=== PATIENT | male | born 1960 | race African-American/Black ===

== ENCOUNTER 2019-09-15 09:36 | Emergency (ER) | payer MEDICAID ==
[~2019-09-15] VITALS: Ht 177.8 cm; Wt 78.0 kg
[2019-09-15] MEDS ORDERED: KETOROLAC 30MG/ML VIAL IV STA (10:37)
[2019-09-15] MEDS ORDERED: SODIUM CHLORIDE 0.9% 1,000 ML IV ONE (10:37)
[2019-09-15 12:16] LABS: HEMATOCRIT. 42.3 % (42.0-52.0); HEMOGLOBIN. 14.1 g/dL (14.0-18.0); MEAN CORPUSCULAR HEMOGLOBIN 27.9 pg (28.0-32.0); MEAN CORPUSCULAR VOLUME 83.5 fL (80.0-94.0); MEAN PLATELET VOLUME 7.3 fl (7.4-10.4); PLATELET 312 x1000/uL (130-400); RED BLOOD CELL COUNT 5.06 mill/uL (4.7-6.1); RED CELL DISTRIBUTION WIDTH 13.9 % (11.6-14.6)
[2019-09-15 12:17] LABS: CLARITY URINE CLOUDY (CLEAR); COLOR URINE YELLOW (YELLOW); KETONES URINE NEGATIVE (NEGATIVE); LEUKOCYTE ESTERASE URINE 2+ (NEGATIVE); NITRITE URINE POSITIVE (NEGATIVE); OCCULT BLOOD URINE 2+ (NEGATIVE); PH URINE 5.5 (4.5-8.0); PROTEIN URINE 1+ (NEGATIVE); SPECIFIC GRAVITY URINE 1.023 (1.005-1.030)
[2019-09-15 12:22] LABS: CHLORIDE 100 mEq/L (98-107)
[2019-09-15 13:15] VITALS: BP 131/81
[2019-09-15 14:29] LABS: PLATELET ESTIMATE NORMAL
== END 2019-09-15 13:45 | disposition home or self-care (01) ==
LOC: ER 09:36
DX: N39.0 Urinary tract infection, site not specified (principal); F12.10 Cannabis abuse, uncomplicated; Z98.890 Other specified postprocedural states; Z87.440 Personal history of urinary (tract) infections
CPT/HCPCS: 36415; 74176; 80053; 81003; 85025; 87086; 87186; 99284; J7030; Z7610

== ENCOUNTER 2022-05-26 14:31 | Emergency (ER) | payer MEDICAID, OTHER ==
[~2022-05-26] VITALS: Ht 175.3 cm; Wt 87.0 kg
[2022-05-26] MEDS ORDERED: CEPH500C2 MT (14:45)
[2022-05-26] MEDS ORDERED: TETANUS, DIPHTHERIA, PERTUSSIS VAC/PF 0.5ML (>10YR OLD) IM ONE (14:45)
[2022-05-26] MEDS ORDERED: CEPHALEXIN 250MG CAPSULE PO ONE (14:45)
[2022-05-26 15:13] VITALS: BP 127/83
== END 2022-05-26 15:15 ==
LOC: ER 14:31
DX: S01.01XA Laceration without foreign body of scalp, initial encounter (principal); X58.XXXA Exposure to other specified factors, initial encounter; Y93.89 Activity, other specified; Y92.89 Other specified places as the place of occurrence of the external cause; Y99.8 Other external cause status; F12.10 Cannabis abuse, uncomplicated
CPT/HCPCS: 90471; 90715; 99283

== ENCOUNTER 2023-03-02 02:40 | Emergency (ER) | payer MEDICARE, MEDICAID ==
[~2023-03-02] VITALS: Ht 175.3 cm; Wt 92.0 kg
[~2023-03-02 02:40] MED LIST: CEPH500C2 MT
[2023-03-02 02:55] VITALS: BP 144/107
[2023-03-02] MEDS ORDERED: ACETAMINOPHEN 325MG TABLET PO ONE (05:30)
[2023-03-02] MEDS ORDERED: IBUPROFEN 400MG TABLET PO ONE (05:30)
[2023-03-02] MEDS ORDERED: ACET-2708 MT (05:39)
== END 2023-03-02 06:00 | disposition home or self-care (01) ==
LOC: ER 03:20
DX: M17.12 Unilateral primary osteoarthritis, left knee (principal); M70.42 Prepatellar bursitis, left knee; F12.10 Cannabis abuse, uncomplicated
CPT/HCPCS: 73560; 73564; 99283